=== PATIENT | female | born 1930 | race Caucasian/White ===

== ENCOUNTER 2017-11-01 07:46 | Observation (INO) ==
--- NOTE | 2017-11-01 08:09 | Emergency Department Note ---
Disposition Clinical Impression: Weakness generalized UTI (urinary tract infection) Qualifiers: Urinary tract infection type: site unspecified Hematuria presence: without hematuria Qualified Code(s): N39.0 - Urinary tract infection, site not specified Fall Qualifiers: Encounter type: initial encounter Qualified Code(s): W19.XXXA - Unspecified fall, initial encounter Disposition: Transfer Intermediate Care [facility] Condition: Good Time of Disposition: 09:47 (Dr Torres) Fall HPI - General Chief Complaint: ED Back Pain/Injury Stated Complaint: Low back pain S/P fall, also left wrist pain Time Seen by Provider: 11/01/17 07:55 Source: patient Mode of arrival: EMS Limitations: no limitations Nursing Notes Reviewed: Yes Vital Signs Reviewed: Yes - History of Present Illness Pt Subjective Complaint: fall Onset (ago): hour(s) (5) Fall From: standing Fall Witnessed: no Place Fall Occurred: home Loss of Consciousness: none Prolonged Down Time?: no Symptoms Prior to Fall: other (left knee buckled) Context: tripped/slipped Location of injury: other (right side of body but mostly left hip and lower back ) Severity: moderate Quality: dull, aching Associated symptoms (after fall): Reports: chest pain, unable to walk, other ( lower extremity swelling). Denies: headache, neck pain, numbness, weakness, shortness of breath, abdominal pain, hematuria, lightheaded, vertigo, confusion - Related Data Previous Rx's Medication Instructions Recorded Bumetanide [Bumex] 0.5 mg PO DAILY #10 tablet 12/06/15 Allergies Allergy/AdvReac Type Severity Reaction Status Date / Time No Known Allergies Allergy Verified 12/06/15 17:30 All systems ED: reviewed and negative except as stated. Constitutional: Reports: weakness, other (Frequent falls) Neurological: Denies: headache, numbness, paresthesias, confusion, abnormal gait Fall PMH - Past Medical History Medical history: Reports: arthritis, GERD, hypertension Psychiatric history: Reports: anxiety, depression - Social History Smoking Status: Never smoker Alcohol use: Reports: none Drug use: Reports: none Physical Exam - General Limitations: no limitations General appearance: alert, in no apparent distress - Head Head exam: atraumatic, normocephalic - Eye Eye exam: Present: normal appearance, PERRL, EOMI. Absent: scleral icterus, conjunctival injection, nystagmus, miosis, mydriasis - ENT ENT exam: normal exam, normal oropharynx, mucous membranes moist - Neck Neck exam: Present: normal inspection, full ROM - Chest Chest inspection: Present: normal inspection, symmetric chest wall rise - Respiratory Respiratory exam: Present: normal lung sounds bilaterally. Absent: respiratory distress - Cardiovascular Cardiovascular exam: Present: regular rate, normal rhythm, normal heart sounds - Abdominal Exam Abdominal exam: Present: soft, Non-Tender, normal bowel sounds - Expanded Lower Extremity Exam Hip/Pelvis exam: Present: normal inspection, full ROM. Absent: tenderness, deformity Upper leg exam: Present: normal inspection, full ROM Knee exam: Present: normal inspection, full ROM Lower leg exam: Present: normal inspection, full ROM Ankle exam: Present: normal inspection, full ROM. Absent: swelling Foot/toe exam: Present: normal inspection, full ROM. Absent: tenderness Neurovascular/Tendon exam: Present: normal capillary refill. Absent: pulse deficit, sensory deficit - Back Exam Back exam: Present: normal inspection, full ROM, tenderness (Tenderness on the left lateral paraspinal and above the iliac crest area.). Absent: CVA tenderness (R), CVA tenderness (L) - Neurological Exam Neurological exam: Present: alert, oriented X3 - Psychiatric Psychiatric exam: Present: normal affect, normal mood - Skin Skin exam: Present: warm, dry Course Vital Signs Temperature 97.5 F L 11/01/17 07:50 Pulse Rate 98 11/01/17 07:50 Respiratory Rate 20 11/01/17 07:50 Blood Pressure 126/84 11/01/17 07:50 O2 Sat by Pulse Oximetry 97 11/01/17 07:50 Temperature 97.5 F L 11/01/17 07:50 Pulse Rate 95 11/01/17 10:30 Respiratory Rate 18 11/01/17 10:36 Blood Pressure 138/72 11/01/17 10:36 O2 Sat by Pulse Oximetry 97 11/01/17 10:30 Oxygen Delivery Oxygen Delivery Room Air Fall - [facility] Narrative Medical decision making narrative: Stable ED course hemodynamically. The patient has UTI with no associated component for sepsis. The patient has a history of multiple falls according to family and states that she has had increasing weakness and decreased ambulation at home. The patient will be admitted to the hospital for further treatment and evaluation of her UTI and have physical therapy and occupational therapy evaluate her for her current weakness and potential assistance for advanced daily living activities - Differential Diagnosis Likely: syncope, traumatic injury - Medical Records Medical records reviewed: Yes I reviewed the patient's medical records. - Lab Data Lab results reviewed: Yes I reviewed the patient's lab results. Result diagrams: 11/01/17 08:25 11/01/17 08:25 Lab Results 11/01/17 11/01/17 11/01/17 Range/Units 08:25 08:25 08:30 WBC 9.8 (4.3-11.1) K/mcL RBC 4.27 (3.82-4.97) M/mcL Hgb 14.2 (11.5-15.4) g/dL Hct 41.0 (35.3-44.9) % MCV 96.0 (83.0-100.0) fL MCH 33.3 (28.0-33.3) pg MCHC 34.6 (31.6-35.5) g/dL RDW 12.7 (11.5-14.5) % Plt Count 265 (140-400) K/mcL MPV 8.4 L (9.4-12.4) fL Immature Gran % 0.3 (0-4) % Seg Neutrophils % 69.1 % Lymphocytes % 20.7 % Monocytes % 8.6 % Eosinophils % 0.8 % Basophils % 0.5 % Neutrophils # 6.7 (1.6-8.9) K/mcL Lymphocytes # 2.0 (0.6-4.6) K/mcL Monocytes # 0.8 (0.0-1.3) K/mcL Eosinophils # 0.1 (0.0-0.6) K/mcL Basophils # 0.1 (0.0-0.2) K/mcL Sodium 133 L (136-145) mEq/L Potassium 3.5 (3.5-5.1) mEq/L Chloride 94 L (98-107) mEq/L Carbon Dioxide 29 (23-29) mEq/L BUN 11 (8-23) mg/dL Creatinine 0.87 (0.60-1.20) mg/dL Est GFR ( Amer) > 60 (> 60) Est GFR (Non-Af Amer) > 60 (> 60) BUN/Creatinine Ratio 13 (6-26) Glucose 123 H (70-105) mg/dL Calculated Osmolality 277 L (280-300) Calcium 9.9 (8.6-10.3) mg/dL Total Bilirubin 0.8 (0.3-1.0) mg/dL Direct Bilirubin 0.1 (0.0-0.2) mg/dL Indirect Bilirubin 0.7 (0.0-1.2) mg/dL AST 16 (13-39) Units/L ALT 11 (7-52) Units/L Alkaline Phosphatase 62 (34-104) Units/L Troponin I < 0.03 (< 0.04) ng/mL Serum Total Protein 7.1 (6.4-8.9) g/dL Albumin 4.3 (3.5-5.7) g/dL Globulin 2.8 (2.4-3.5) g/dL Albumin/Globulin Ratio 1.5 (1.1-2.2) Lipase 10 L (11-82) Units/L Urine Color Yellow (Yellow) Urine Clarity Cloudy A (Clear) Urine pH 7.0 (5.0-8.0) pH Units Ur Specific [place] 1.015 (1.010-1.025) Urine Protein Negative (Neg-Trace) mg/dL Urine Glucose (UA) Normal (Normal) mg/dL Urine Ketones Trace H (Negative) mg/dL Urine Blood Negative (Negative) Urine Nitrite Positive A (Negative) Urine Bilirubin Negative (Negative) Urine Urobilinogen Normal (Normal) mg/dL Ur Leukocyte Esterase Large H (Negative) Urine Microscopic RBC 3-5 H (0-3) per hpf Urine Microscopic WBC 15-30 H (0-3) per hpf Ur Squamous Epith Cells Few (None-Few) per lpf Urine Bacteria Many H (None-Few) per hpf Ur Culture Indicated? YES A (NO) - Radiology Data Radiology results reviewed: Yes I reviewed the patient's radiology results. Lumbar Spine CT 11/01/17 08:12 IMPRESSION: 1. No acute fracture of the lumbar spine evident. 2. Severe dextroconvex scoliosis. 3. Severe multilevel degenerative changes resulting in multilevel spinal canal stenosis and multilevel neural foraminal narrowing, as described above. D/ / Latrell Cabrera MD / Latrell Cabrera MD Interpreting Provider: Latrell Cabrera MD Chest X-Ray 11/01/17 08:13 IMPRESSION: Low lung volumes with mild dependent bibasilar opacification, likely atelectasis. No pneumothorax. D/ / Aleksander Saha MD / Aleksander Saha MD Interpreting Provider: Aleksander Saha MD Pelvis X-Ray 11/01/17 09:03 IMPRESSION: 1. No acute osseous abnormality of the pelvis. 2. Bony demineralization. 3. Mild bilateral hip osteoarthritis. D/ / Sonal Crenshaw MD / Sonal Crenshaw MD Interpreting Provider: Sonal Crenshaw MD - EKG Data Rate: normal Rhythm: NSR [place]/QRS: RBBB Interpretation: normal EKG, nonspecific ST-T wave changes
[2017-11-01] MEDS ORDERED: *HR* HYDROcodone/Acet 5/325 mg TABLET PO ONE (08:11)
[2017-11-01 08:28] LABS: Basophils # 0.1 K/mcL (0.0-0.2); Basophils % 0.5 %; Eosinophils # 0.1 K/mcL (0.0-0.6); Eosinophils % 0.8 %; Hemoglobin 14.2 g/dL (11.5-15.4); Immature Granulocytes % 0.3 % (0-4); Lymphocytes % 20.7 %; Mean Corpuscular HGB Conc 34.6 g/dL (31.6-35.5); Mean Corpuscular Hemoglobin 33.3 pg (28.0-33.3); Mean Platelet Volume 8.4 fL (9.4-12.4); Monocytes # 0.8 K/mcL (0.0-1.3); Monocytes % 8.6 %; Neutrophils # 6.7 K/mcL (1.6-8.9); Platelet Count 265 K/mcL (140-400); Red Blood Count 4.27 M/mcL (3.82-4.97); Red Cell Distribution Width 12.7 % (11.5-14.5); Segmented Neutrophils % 69.1 %
[2017-11-01 08:41] LABS: Bilirubin,Urine Negative (Negative); Blood,Urine Negative (Negative); Clarity,Urine Cloudy (Clear); Color,Urine Yellow (Yellow); Glucose,Urine (UA) Normal (Normal); Ketones,Urine Trace mg/dL (Negative); Leukocyte Esterase,Urine Large (Negative); Nitrite,Urine Positive (Negative); Protein,Urine Negative (Neg-Trace); Specific Gravity,Urine 1.015 (1.010-1.025); Urobilinogen,Urine Normal (Normal)
[2017-11-01 08:49] LABS: Bacteria,Urine Many per hpf (None-Few); Squamous Epithelial Cell,Urine Few per lpf (None-Few); WBC,Urine 15-30 per hpf (0-3)
[2017-11-01 08:56] LABS: Troponin I < 0.03 ng/mL (< 0.04)
[2017-11-01 08:59] LABS: Alanine Aminotransferase 11 Units/L (7-52); Albumin 4.3 g/dL (3.5-5.7); Albumin/Globulin Ratio 1.5 (1.1-2.2); Alkaline Phosphatase 62 Units/L (34-104); Aspartate Amino Transferase 16 Units/L (13-39); BUN/Creatinine Ratio 13 (6-26); Bilirubin,Direct 0.1 mg/dL (0.0-0.2); Bilirubin,Indirect 0.7 mg/dL (0.0-1.2); Bilirubin,Total 0.8 mg/dL (0.3-1.0); Blood Urea Nitrogen 11 mg/dL (8-23); Calcium 9.9 mg/dL (8.6-10.3); Carbon Dioxide 29 mEq/L (23-29); Chloride 94 mEq/L (98-107); Globulin 2.8 g/dL (2.4-3.5); Glucose 123 mg/dL (70-105); Lipase 10 Units/L (11-82); Osmolality,Calculated 277 (280-300); Potassium 3.5 mEq/L (3.5-5.1); Sodium 133 mEq/L (136-145); Total Protein 7.1 g/dL (6.4-8.9); eGFR For African Americans > 60 (> 60); eGFR For Non-African Americans > 60 (> 60)
[2017-11-01] MEDS ORDERED: Naloxone 0.4 MG/ML INJ IVP PRN (10:38)
[2017-11-01] MEDS ORDERED: Acetaminophen 325 MG TABLET PO PRN (10:38)
[2017-11-01] MEDS ORDERED: Ondansetron 4 MG/2 ML VIAL IVP PRN (10:38)
--- NOTE | 2017-11-01 15:35 | Internal Med History&Physical ---
Date of Encounter: 11/01/17 Time of Encounter: 15:00 Assessment and Plan (1) Multiple falls Current visit: Yes Status: Acute She will have PT and OT evaluations. Orthostatic vital signs will be checked. (2) UTI (urinary tract infection) Current visit: Yes Status: Acute She was given Rocephin in emergency room. Will continue this with lactobacillus. Qualifiers: Urinary tract infection type: site unspecified Hematuria presence: without hematuria Qualified Code(s): N39.0 - Urinary tract infection, site not specified (3) Weakness generalized Current visit: Yes Status: Acute We will order PT and OT evaluation. (4) Hypertension Current visit: Yes Status: Chronic We will monitor blood pressure. Qualifiers: Hypertension type: essential hypertension Qualified Code(s): I10 - Essential (primary) hypertension Internal Medicine - H&P: HPI Chief complaint: Fall, UTI Admitted From: Emergency Dept Plans for Post Hospital Care: Home History of present illness: Ms. Thorpe is a 87 year old female who came to the hospital stating she had a fall approximately 2 AM while and drained the bathroom. There was no severe injury. She will lay on the floor for over an hour. She did not want to awaken help in the house. She was evaluated in emergency room and they will to have UTI and overall weakness. It was felt she should be admitted to [facility] for ongoing care needs. She states she has fallen or nearly fallen approximately 5 times in the last 3 months. She reports using a Rollator walker on ambulation in the house. She states she has not left her house since May 2017 when she will went to her PCP office. She denies orthostatic symptoms on arising from a chair. She does not know the names of her medications. Past Med Surg Social Fam HX - Past Medical History Medical history: arthritis, GERD, hypertension Psychiatric history: anxiety, depression - Social History Smoking Status: Never smoker Smokeless Tobacco Status: No Alcohol use: none Drug use: none Internal Medicine - H&P: Meds Bumetanide [Bumex] 0.5 mg PO DAILY #10 tablet 12/06/15 [Rx] 3 Allergy/AdvReac Type Severity Reaction Status Date / Time No Known Allergies Allergy Verified 12/06/15 17:30 All Systems PM: A 10-system review of systems was performed and is negative for pertinent findings except as documented above in the HPI. Review of systems: Gen.: She states her weight has generally been stable over the past few months Cardiovascular: She has history of hypertension but denies AL heart failure angina DVT or pulmonary embolus Respiratory: She states she smoked less than 3 cigarettes per day from age 19- 76. She denies chronic lung disease. GI: She denies disorders of her liver gallbladder or exocrine pancreas : She has chronic kidney disease and follows with a [place] palm gatherer. She denies other kidney or bladder disorders. 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 Neurologic: She denies large distribution strokes or seizures. Endocrine: She was told she had a "thyroid problem" approximately 50 years ago but does not take medication at this time. She denies diabetes or hyperlipidemia Hematology/oncology: She had CIS (?) of cervix many years ago as per above with curative ablation. She denies internal malignancies or anemia otherwise. Psychiatric: She denies anxiety or depression or other mental health issues Muscle skeletal: She states her left knee occasionally "tami". She has occasional low back pain. She denies gout. - Constitutional Vitals: Temp Pulse Resp BP Pulse Ox 98.9 F 101 17 140/71 95 11/01/17 10:55 11/01/17 10:55 11/01/17 10:55 11/01/17 10:55 11/01/17 14:33 Exam: Gen.: She is a well-developed well-nourished female lying in bed who appears in no severe distress. HEENT: Head is atraumatic and normocephalic. Eyes: EOMI. There is no scleral icterus. Mouth: Mucosa is moist. Neck: Supple and nontender. There is no thyromegaly or adenopathy noted. Heart: Regular rate 104/m. There is a 2-3/6 systolic murmur heard at left sternal border. S1 and S2 are soft. Lungs: No wheezes or crackles are heard. Abdomen: Soft and nontender. No masses or guarding are noted. Extremities: There is no cyanosis edema or clubbing noted. Dorsalis pedis and posttibial pulses are trace palpable bilaterally. Her feet are warm to touch. She has onychomycosis and very long nails on some toenails. Neurologic: Mental status: She is very talkative and seems to be a reliable historian. Cranial nerves: Smile is symmetric. Forehead wrinkles bilaterally. Tongue protrudes midline. EOMI. Motor: There is no pronator drift. Cerebellar: Finger to nose is intact bilaterally. Skin: Warm and dry Internal Med - H&P Results - Labs CBC & Chem 7: 11/01/17 08:25 11/01/17 08:25
[2017-11-01] MEDS: Lactobacillus 1 EACH CAP.SPRINK PO SCH (20:36)
[2017-11-02 05:07] LABS: Basophils % 0.6 %; Eosinophils # 0.1 K/mcL (0.0-0.6); Eosinophils % 1.4 %; Hematocrit 39.9 % (35.3-44.9); Hemoglobin 13.7 g/dL (11.5-15.4); Immature Granulocytes % 0.1 % (0-4); Lymphocytes # 1.9 K/mcL (0.6-4.6); Mean Corpuscular HGB Conc 34.3 g/dL (31.6-35.5); Mean Corpuscular Hemoglobin 33.3 pg (28.0-33.3); Mean Corpuscular Volume 96.8 fL (83.0-100.0); Mean Platelet Volume 8.7 fL (9.4-12.4); Monocytes # 0.7 K/mcL (0.0-1.3); Monocytes % 9.3 %; Neutrophils # 4.4 K/mcL (1.6-8.9); Platelet Count 268 K/mcL (140-400); Red Blood Count 4.12 M/mcL (3.82-4.97); Segmented Neutrophils % 61.6 %
[2017-11-02 05:28] LABS: Alanine Aminotransferase 11 Units/L (7-52); Albumin/Globulin Ratio 1.5 (1.1-2.2); Alkaline Phosphatase 60 Units/L (34-104); Aspartate Amino Transferase 18 Units/L (13-39); BUN/Creatinine Ratio 13 (6-26); Bilirubin,Total 0.9 mg/dL (0.3-1.0); Blood Urea Nitrogen 10 mg/dL (8-23); Calcium 9.4 mg/dL (8.6-10.3); Carbon Dioxide 25 mEq/L (23-29); Chloride 96 mEq/L (98-107); Globulin 2.7 g/dL (2.4-3.5); Glucose 88 mg/dL (70-105); Osmolality,Calculated 270 (280-300); Potassium 3.6 mEq/L (3.5-5.1); Sodium 131 mEq/L (136-145); Total Protein 6.7 g/dL (6.4-8.9); eGFR For African Americans > 60 (> 60); eGFR For Non-African Americans > 60 (> 60)
[2017-11-02 05:39] LABS: Thyroid Stimulating Hormone 1.857 mcIU/mL (0.340-5.600)
[2017-11-02] MEDS ORDERED: cefTRIAXone 1,000 MG in Water for inj. (sterile) 10 ML IVPB SCH ×2 (08:00→08:30)
[2017-11-02] MEDS: Lactobacillus 1 EACH CAP.SPRINK PO SCH ×2 (08:18→21:25)
--- NOTE | 2017-11-02 12:35 | Electrocardiograph Report ---
[address] [address] Test Date: 2017-11-01 Pat Name: Adelaide Thorpe Department: [id number] Room: [facility] Gender: F Blower Operator: [id number] : 1930 Requested By: Evens Mancia Order Number: [id number] Reading MD: Aquiles Mcginnis Measurements Intervals Helm Rate: 96 P: 52 SC: 156 QRS: -8 QRSD: 125 T: 25 QT: 373 QTc: 427 Interpretive Statements SINUS RHYTHM RIGHT BUNDLE BRANCH BLOCK Electronically Signed On 11-02-2017 12:34:03 EST by Aquiles Mcginnis
[2017-11-02] MEDS: *HR* HYDROcodone/Acet 5/325 mg TABLET PO PRN (15:33)
--- NOTE | 2017-11-02 15:45 | Internal Med Progress Note ---
Date of Encounter: 11/02/17 Time of Encounter: 15:35 - Assessment and plan (1) Multiple falls Current Visit: Yes Status: Acute Assessment and plan: November 02. OT evaluation noted. Physical therapy evaluation pending. Orthostatic vital signs not recorded. (2) UTI (urinary tract infection) Current Visit: Yes Status: Acute Assessment and plan: November 02. Preliminary urine culture showing gram-negative rods. Continue Rocephin empirically with lactobacillus. Qualifiers: Urinary tract infection type: site unspecified Hematuria presence: without hematuria Qualified Code(s): N39.0 - Urinary tract infection, site not specified (3) Weakness generalized Current Visit: Yes Status: Acute Assessment and plan: November 02. Continue therapy evaluation/intervention. (4) Hypertension Current Visit: Yes Status: Chronic Assessment and plan: November 02. HCTZ and nifedipine have been discontinued. We will start metoprolol for blood pressure and tachycardia. Qualifiers: Hypertension type: essential hypertension Qualified Code(s): I10 - Essential (primary) hypertension - Subjective Interval history: November 02. She has no new complaints. She still feels weak and not safe to discharge home. - Constitutional Vitals: Temp Pulse Resp BP Pulse Ox 97.7 F 100 16 152/79 94 11/02/17 14:26 11/02/17 14:26 11/02/17 14:26 11/02/17 14:26 11/02/17 14:26 Exam: She is resting comfortably in bed and appears in no acute distress. Her extremities show no edema. Her affect is overall cheerful. I reviewed her medications and lab results. Internal Medicine: Result - Labs CBC & Chem 7: 11/02/17 04:39 11/02/17 04:39 Labs: Short CBC 11/02/17 Range/Units 04:39 WBC 7.1 (4.3-11.1) K/mcL Hgb 13.7 (11.5-15.4) g/dL Hct 39.9 (35.3-44.9) % Plt Count 268 (140-400) K/mcL Neutrophils # 4.4 (1.6-8.9) K/mcL BMP 11/02/17 04:39 Sodium 131 L Potassium 3.6 Chloride 96 L Carbon Dioxide 25 BUN 10 Creatinine 0.78 Glucose 88 Calcium 9.4 Liver Function 03/10/18 Range/Units 04:39 Total Bilirubin 0.9 (0.3-1.0) mg/dL AST 18 (13-39) Units/L ALT 11 (7-52) Units/L Alkaline Phosphatase 60 (34-104) Units/L Albumin 4.0 (3.5-5.7) g/dL Consult Discharge Plan - Plan Referrals: Giovanna Tong, ASSOCIATE PROFESSOR OF BIOSTATISTICS [Primary Care Provider] - 1 week
[2017-11-02] MEDS: DESIPRAMINE 25 MG PO SCH (21:26)
[2017-11-02] MEDS: ALPRAZolam 0.25 MG TABLET PO SCH (21:52)
[2017-11-03] MEDS: Lactobacillus 1 EACH CAP.SPRINK PO SCH ×2 (08:10→21:22)
[2017-11-03] MEDS: ALPRAZolam 0.25 MG TABLET PO SCH ×3 (08:11→21:33)
[2017-11-03] MEDS: cefTRIAXone 1,000 MG in Water for inj. (sterile) 10 ML IVPB SCH (08:20)
--- NOTE | 2017-11-03 09:45 | Internal Med Progress Note ---
Date of Encounter: 11/03/17 Time of Encounter: 09:35 - Assessment and plan (1) Multiple falls Current Visit: Yes Status: Acute Assessment and plan: November 02. OT evaluation noted. Physical therapy evaluation pending. Orthostatic vital signs not recorded. November 03. Continue therapy intervention. Will check orthostatic vital signs in a.m. (2) UTI (urinary tract infection) Current Visit: Yes Status: Acute Assessment and plan: November 02. Preliminary urine culture showing gram-negative rods. Continue Rocephin empirically with lactobacillus. Qualifiers: Urinary tract infection type: site unspecified Hematuria presence: without hematuria Qualified Code(s): N39.0 - Urinary tract infection, site not specified (3) Weakness generalized Current Visit: Yes Status: Acute Assessment and plan: November 02. Continue therapy evaluation/intervention. (4) Hypertension Current Visit: Yes Status: Chronic Assessment and plan: November 02. HCTZ and nifedipine have been discontinued. We will start metoprolol for blood pressure and tachycardia. Qualifiers: Hypertension type: essential hypertension Qualified Code(s): I10 - Essential (primary) hypertension - Subjective Interval history: November 02. She has no new complaints. She still feels weak and not safe to discharge home. November 03. She has no new complaints and states she feels stronger but still too weak to be discharged home. - Constitutional Vitals: Temp Pulse Resp BP Pulse Ox 98.1 F 90 16 182/84 94 11/03/17 06:47 11/03/17 08:09 11/03/17 06:47 11/03/17 08:09 11/03/17 08:09 Exam: She is resting comfortably in bed and appears in no acute distress. Her affect is bright and cheerful. I reviewed her medications and lab results. Internal Medicine: Result - Labs CBC & Chem 7: 11/02/17 04:39 11/02/17 04:39 Consult Discharge Plan - Plan Referrals: Giovanna Tong, BUS DRIVER/MONITOR [Primary Care Provider] - 1 week
[2017-11-03] MEDS: *HR* HYDROcodone/Acet 5/325 mg TABLET PO PRN (10:53)
[2017-11-03] MEDS: DESIPRAMINE 25 MG PO SCH (21:28)
[2017-11-04] MEDS: cefTRIAXone 1,000 MG in Water for inj. (sterile) 10 ML IVPB SCH (07:42)
[2017-11-04] MEDS: ALPRAZolam 0.25 MG TABLET PO SCH ×3 (07:57→15:38)
[2017-11-04] MEDS: Lactobacillus 1 EACH CAP.SPRINK PO SCH (07:57)
--- NOTE | 2017-11-04 11:39 | Discharge Summary ---
Date of Encounter: 11/04/17 Time of Encounter: 11:25 - Discharge Diagnosis (1) Multiple falls Priority: Primary Status: Acute (2) UTI (urinary tract infection) Priority: Secondary Status: Acute Qualifiers: Urinary tract infection type: site unspecified Hematuria presence: without hematuria Qualified Code(s): N39.0 - Urinary tract infection, site not specified (3) Weakness generalized Priority: Secondary Status: Acute (4) Hypertension Priority: Secondary Status: Chronic Qualifiers: Hypertension type: essential hypertension Qualified Code(s): I10 - Essential (primary) hypertension Hospital course: Ms. Thorpe is a 87 year old female who came to the hospital stating she had a fall approximately 2 AM while ambulating to the bathroom. There was no severe injury. She lay on the floor for over an hour. She did not want to awaken help in the house. She was evaluated in emergency room and felt to have UTI and overall weakness. It was felt she should be admitted to [facility] for ongoing care needs. Initial orders were written by the emergency room physician. I saw her on November 01 and performed a history and physical. She had physical therapy and occupational therapy evaluations with ongoing intervention. She made satisfactory progress. She will have home health services to continue PT and OT interventions upon discharge. She was started empirically on Rocephin for UTI. Urine culture returned showing Escherichia coli. She will continue on Ceftin with lactobacillus for 2 additional days at discharge. Her HCTZ and amlodipine were discontinued and she was started on Toprol.. Her heart rate and blood pressure improved. With decreased heart rate her previously seen right bundle branch block resolved. 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 On November 04 she was stable for discharge home. She will follow with Dr. Anuel Kelsey within 1 week. - Time Spent with Patient Total time spent providing and/or coordinating discharge services: - Discharge Medications Prescriptions: Cefuroxime PO [Ceftin] 500 mg PO Q12HR #4 tablet Lactobacillus [Culturelle] 1 each PO BID #4 cap.sprink Metoprolol XL (24 HR) Succ [Toprol XL] 50 mg PO DAILY #30 tab.er.24h Home Medications: ALPRAZolam [Xanax 0.25 MG Tablet] 0.25 mg PO TID 11/02/17 [History] Desipramine [Norpramine] 25 mg PO HS 11/02/17 [History] HYDROcodone/Acet 5/325 mg [[place] 5-325 mg] 1 tab PO TID PRN 11/02/17 [History] Nitroglycerin [Nitrostat] 0.4 mg SL PRN 11/02/17 [History] Cefuroxime PO [Ceftin] 500 mg PO Q12HR #4 tablet 11/04/17 [Rx] Lactobacillus [Culturelle] 1 each PO BID #4 cap.sprink 11/04/17 [Rx] Metoprolol XL (24 HR) Succ [Toprol XL] 50 mg PO DAILY #30 tab.er.24h 11/04/17 [ Rx] Omeprazole [PriLOSEC] 20 mg PO DAILY PRN #0 11/04/17 [Rx] Allergies/Adverse Reactions: 3 Allergy/AdvReac Type Severity Reaction Status Date / Time No Known Allergies Allergy Verified 12/06/15 17:30 Date of admission: 11/01/17 10:14 Primary care physician: Anuel Kelsey M.D. Consults: 11/01/17 11:29 Consult to [place] [CONS] Routine Reason for SW Consult: discharge planning. home alone multiple falls 11/01/17 14:36 Consult to Occupational Therapy [CONS] Routine Comment: Evaluate, develop and implement POC Reason for Consult: Fall, weakness Consult to Physical Therapy [CONS] Routine Comment: Evaluate, develop and implement POC Reason for Consult: Fall, weakness - Constitutional Vitals: Temp Pulse Resp BP Pulse Ox 98.1 F 63 16 166/69 95 11/04/17 07:40 11/04/17 07:40 11/04/17 07:40 11/04/17 07:40 11/04/17 07:40 - Patient Status Disposition: Home Health Service Condition: Good Functional capacity at discharge: uses cane/walker Overall status at discharge: patient is progressing back to baseline - Discharge Instructions Follow Up With: Anuel Kelsey MD [Partnered Physician] - 1 week - Diet and Activity Activity: as per physical therapy Diet: advance to your usual diet
--- NOTE | 2017-11-04 11:45 | Physician Discharge Referral ---
Home Health/Hosp Referral Info Transfer to: Home Health Attending Provider: Brian Provider in Charge Post Discharge: PCP (Anuel Kelsey M.D.) - Diagnosis (1) Multiple falls Priority: Primary Status: Acute (2) UTI (urinary tract infection) Priority: Secondary Status: Acute (3) Weakness generalized Priority: Secondary Status: Acute (4) Hypertension Priority: Secondary Status: Chronic - Respiratory Orders Smoking Cessation: Smoking cessation has been advised. For more information, call the [place] Tobacco Quit Line at 8-690-XXLR-NOW. - Diet/Nutrition Diet/Nutrition Orders: Regular - Activity Activity Orders: Walker - Services Needed Following services are medically necessary services: Nursing, Home Health Aide, Physical Therapy, Occupational Therapy - Transfer Medications Prescriptions: Cefuroxime PO [Ceftin] 500 mg PO Q12HR #4 tablet Lactobacillus [Culturelle] 1 each PO BID #4 cap.sprink Metoprolol XL (24 HR) Succ [Toprol XL] 50 mg PO DAILY #30 tab.er.24h Home Medications: ALPRAZolam [Xanax 0.25 MG Tablet] 0.25 mg PO TID 11/02/17 [History] Desipramine [Norpramine] 25 mg PO HS 11/02/17 [History] HYDROcodone/Acet 5/325 mg [[place] 5-325 mg] 1 tab PO TID PRN 11/02/17 [History] Nitroglycerin [Nitrostat] 0.4 mg SL PRN 11/02/17 [History] Cefuroxime PO [Ceftin] 500 mg PO Q12HR #4 tablet 11/04/17 [Rx] Lactobacillus [Culturelle] 1 each PO BID #4 cap.sprink 11/04/17 [Rx] Metoprolol XL (24 HR) Succ [Toprol XL] 50 mg PO DAILY #30 tab.er.24h 11/04/17 [ Rx] Omeprazole [PriLOSEC] 20 mg PO DAILY PRN #0 11/04/17 [Rx] Allergies/Adverse Reactions: 3 Allergy/AdvReac Type Severity Reaction Status Date / Time No Known Allergies Allergy Verified 12/06/15 17:30 Certification: Further, I certify that my clinical findings support that this patient is homebound (i.e. absences from home require considerable and taxing effort and are for medical reasons or buddhism services or infrequently or short duration when for other reasons) because: Homebound Reason: Leaving home requires considerable and taxing effort due to condition (Impaired walking ability) Attestation: My signature below is to certify that this patient is under my care and that I, or nurse practitioner, or a physician's assignment desk assistant working with me, has a face-to -face encounter with this patient.
[2017-11-04 15:38] VITALS: BP 173/86
[2017-11-04] MEDS: *HR* HYDROcodone/Acet 5/325 mg TABLET PO PRN (15:43)
--- NOTE | 2017-11-04 20:10 | Electrocardiograph Report ---
[address] [address] Test Date: 2017-11-03 Pat Name: Adelaide Thorpe Department: [id number] Room: [facility] Gender: F Manager Mechanical Maintenance: [id number] : [id number] Requested By: Aleksander Torres Order Number: [id number] Reading MD: Tej Jorge MD Measurements Intervals [place] Rate: 76 P: 48 GA: 167 QRS: -6 QRSD: 124 T: 30 QT: 429 QTc: 459 Interpretive Statements SINUS RHYTHM RIGHT BUNDLE BRANCH BLOCK Electronically Signed On 11-04-2017 20:08:42 EDT by Tej Jorge MD
[2017-11-05] MEDS ORDERED: Metoprolol XL (24 HR) Succ 50 MG TAB.ER.24H PO SCH (09:00)
== END 2017-11-04 16:45 | disposition home health service (06) ==
LOC: INPPIK 07:46 → EMEROOPIK 07:46 → INPPIK 10:38
PROVIDERS: ADMIT Internal Medicine; ATTEND Internal Medicine